=== PATIENT | male | born 1940 | race Caucasian/White ===

== ENCOUNTER 2019-04-10 11:20 | Day surgery (SDC) | payer MEDICARE, OTHER ==
[~2019-04-10 11:20] MED LIST: Cefuroxime 10 MG/ML SYRINGE EYELF SCH; Lidocaine 1% PF 2 ML SDV INJECT SCH; Pilocarpine 4% Ophth Soln 15 ML Bot EYELF SCH
[2019-04-10] MEDS: Polymyxin B/Trimethoprim 10 ML Bottle EYELF SCH ×3 (13:10→14:58)
[2019-04-10] MEDS: Brimonidine 0.2% Ophth Soln 15 ML Bottle EYELF SCH ×3 (13:15→14:58)
[2019-04-10] MEDS: Phenylephrine 2.5% Ophth Soln 2 ML Bot EYELF SCH ×5 (13:20→14:38)
[2019-04-10] MEDS: Tropicamide 1% Ophth Soln 15 ML Bottle EYELF SCH ×4 (13:25→14:00)
--- NOTE | 2019-04-10 13:25 | PCM.PREANE ---
Preanesthetic Assessment - Anesthesia/Transfusion/Family Hx Anesthesia History: Prior Anesthesia Without Reaction Family History of Anesthesia Reaction: No Transfusion History: No Prior Transfusion(s) - Review of Systems General: No Symptoms Pulmonary: No Symptoms Cardiovascular: No Symptoms Gastrointestinal: No Symptoms Neurological: No Symptoms Other: Reports: None - Physical Assessment NPO Status Date: 04/10/19 NPO Status Time: 05:00 Pulse: 54 O2 Sat by Pulse Oximetry: 98 Respiratory Rate: 16 Blood Pressure: 158/79 Temperature: 97.3 C ASA Class: 2 Mental Status: Alert & Oriented x3 Airway Class: Mallampati = 1 Dentition: Reports: Normal Dentition Thyro-Mental Finger Breadths: 3 Mouth Opening Finger Breadths: 3 ROM/Head Extension: Full Lungs: Clear to Auscultation, Normal Respiratory Effort Cardiovascular: Regular Rate, Regular Rhythm - Allergies Allergies/Adverse Reactions: Allergies Allergy/AdvReac Type Severity Reaction Status Date / Time No Known Allergies Allergy Verified 04/07/19 09:37 - Acknowledgements Anesthesia Type Planned: MAC Pt an Appropriate Candidate for the Planned Anesthesia: Yes Alternatives and Risks of Anesthesia Discussed w Pt/Guardian: Yes Pt/Guardian Understands and Agrees with Anesthesia Plan: Yes PreAnesthesia Questionnaire HEENT History: Reports: Cataract Cardiovascular History: Reports: CAD, High Cholesterol Respiratory History: Reports: None Gastrointestinal History: Reports: None Genitourinary History: Reports: None Musculoskeletal History: Reports: None Neurological History: Reports: None Psychiatric History: Reports: None Endocrine/Metabolic History: Reports: Hypothyroidism Hematologic History: Reports: None - HOME MEDS Home Medications: Home Meds Aspirin [Adult Low Dose Aspirin EC] 81 mg PO DAILY 04/07/19 [History] Cholecalciferol (Vitamin D3) [Vitamin D3] 1,000 unit PO DAILY 04/07/19 [History] Levothyroxine 75 mcg PO DAILY 04/07/19 [History] atorvaSTATin Calcium [Atorvastatin Calcium] 80 mg PO DAILY 04/07/19 [History] - CURRENT (IN HOUSE) MEDS Current Meds: Current Medications Brimonidine Tartrate (Brimonidine Tartrate 0.2% Ophth Soln) 0 ml EYELF ASDIRECTED MIKE Stop: 04/10/19 18:00 Last Admin: 04/10/19 13:15 Dose: 1 drop Cefuroxime Sodium (Zinacef) 0 mg EYELF ASDIRECTED MIKE Stop: 04/10/19 18:00 Lidocaine HCl (Xylocaine-Mpf 1%) 0 ml INJECT ONETIME MIKE Stop: 04/10/19 18:00 Phenylephrine HCl (Calvin-Synephrine 2.5% Ophth Soln) 0 ml EYELF ASDIRECTED MIKE Stop: 04/10/19 18:00 Pilocarpine HCl (Pilocar 4% Ophth Soln) 0 ml EYELF ASDIRECTED MIKE Stop: 04/10/19 18:00 Polymyxin/Trimethoprim Sulfate (Polytrim Ophth Soln) 0 ml EYELF ASDIRECTED MIKE Stop: 04/10/19 18:00 Last Admin: 04/10/19 13:10 Dose: 1 drop Tetracaine HCl (Tetracaine 0.5% Steri-Unit [place]) 0 ml EYELF ASDIRECTED MIKE Stop: 04/10/19 18:00 Tropicamide (Mydriacyl 1% Ophth Soln) 0 ml EYELF ASDIRECTED MIKE Stop: 04/10/19 18:00
[2019-04-10] MEDS: Tetracaine HCl/PF 0.5% 4 ML Bottle EYELF SCH ×4 (14:05→14:44)
--- NOTE | 2019-04-10 15:05 | PCM48HPAN ---
Post Anesthesia Note - EVALUATION WITHIN 48HRS OF ANESTHETIC Vital Signs in Normal Range: Yes Patient Participated in Evaluation: Yes Respiratory Function Stable: Yes Airway Patent: Yes Cardiovascular Function Stable: Yes Hydration Status Stable: Yes Pain Control Satisfactory: Yes Nausea and Vomiting Control Satisfactory: Yes Mental Status Recovered: Yes Pulse Rate: 49 SaO2: 100 Resp Rate: 16 Temperature: 97.3 C Blood Pressure: 144/73
--- NOTE | 2019-04-10 15:12 | PCM48HPAN ---
Post Anesthesia Note - EVALUATION WITHIN 48HRS OF ANESTHETIC Vital Signs in Normal Range: Yes Patient Participated in Evaluation: Yes Respiratory Function Stable: Yes Airway Patent: Yes Cardiovascular Function Stable: Yes Hydration Status Stable: Yes Pain Control Satisfactory: Yes Nausea and Vomiting Control Satisfactory: Yes Mental Status Recovered: Yes
== END 2019-04-10 15:10 | disposition home or self-care (01) ==
LOC: JD.SDS 11:20
PROVIDERS: ATTEND Ophthalmology
DX: H25.813 Combined forms of age-related cataract, bilateral (principal); H40.003 Preglaucoma, unspecified, bilateral; H16.103 Unspecified superficial keratitis, bilateral; H16.223 Keratoconjunctivitis sicca, not specified as Sjogren's, bilateral; H02.834 Dermatochalasis of left upper eyelid; H02.831 Dermatochalasis of right upper eyelid; I25.10 Atherosclerotic heart disease of native coronary artery without angina pectoris; E78.00 Pure hypercholesterolemia, unspecified; E03.9 Hypothyroidism, unspecified; Z98.890 Other specified postprocedural states; Z87.891 Personal history of nicotine dependence; Z79.82 Long term (current) use of aspirin; Z79.899 Other long term (current) drug therapy
CPT/HCPCS: 66984; J0697; J2001; C1780